=== PATIENT | female | born 1955 | race Caucasian/White ===

== ENCOUNTER 2018-06-20 10:08 | Inpatient (IN) | payer SELFPAY ==
[2018-06-20] MEDS ORDERED: FENTANYL CITR 100 MCG/2 ML ONE (10:29)
[2018-06-20] MEDS ORDERED: NA CHLORIDE 0.9% 1,000 ML ONE (10:29)
[2018-06-20 10:40] LABS: Absolute Lymphocytes (CBC) 1.7 K/uL (0.7-4.9); Absolute Monocytes 0.4 K/uL (0.1-1.3); Absolute Neutrophil 7.7 K/uL (1.8-8.0); Basophils % 0.4 % (0-1.3); Eosinophils % 0.9 % (0-4.4); Hematocrit 42.7 % (36.0-45.0); Lymphocytes % 17.2 % (15.3-44.8); MPV 10.3 fL (7.6-11.3); Monocytes % 4.1 % (3.3-12.3); Protime INR 0.99; RBC Red Blood Cell Count 4.46 M/uL (3.86-4.86)
[2018-06-20] MEDS ORDERED: DIAZEPAM 10 MG/2 ML INJ SYRINGE ONE (10:45)
--- NOTE | 2018-06-20 10:47 | RAD REPORT ---
EXAM DESCRIPTION: CT - Angio Aorta For Dissection - 06/20/2018 10:33 am CLINICAL HISTORY: Chest pain COMPARISON: None. TECHNIQUE: Dynamically enhanced 3 mm thick images of the chest, abdomen, and upper pelvis were [place] during administration of approximately 150mL Isovue 370 IV contrast. Sagittal and coronal reconst ruction images were generated using MIP and reviewed. Exam utilizes a protocol to evaluate entire cou rse of the aorta. All CT scans are performed using dose optimization technique as appropriate and may include automated exposure control or mA/KV adjustment according to patient size. FINDINGS: Aorta is normal in diameter with no dissection or other acute aortic findings. Reconstruct ion images show no significant findings. Pulmonary arteries are normal as well. No cardiomegaly, pericardial thickening or pericardial effusio n. No consolidation or mass. Posterior gutter granuloma on the right. Underlying motion could mask a mil d interstitial edema or infiltrate. No pericardial thickening or effusion. Heart size is upper normal . No pleural thickening, pleural effusion or pneumothorax. No abnormal mediastinal or hilar mass or lymphadenopathy seen. No chest wall mass or abnormal axillar y lymphadenopathy. Celiac, SMA and renal arteries show no suspicious findings. The liver, spleen and pancreas show no tran spicious findings. Gallstone is suspected in the fundus. Biliary tree is mildly prominent for a post cholecystectomy patient. There is questionable duct stone present. No mass or abnormal lymphadenopat hy. No free air or pneumatosis. Free fluid is present in the pelvis urinary bladder is fully contract ed. Fluid is beyond physiologic limits. The etiology of the fluid is not clearly evident. No gross ac eyak bowel finding seen. Postsurgical changes to the stomach and small bowel are stable. No uterine abnormality. Ovaries are atrophic or absent. No adnexal mass identified. Disc and bony degenerative changes are present. No acute bone finding. IMPRESSION: Negative CT scan of the aorta and pulmonary arterial tree. No acute CT chest finding. Cholelithiasis and suspected choledocholithiasis with enlarged biliary tree. Correlation is needed wi th any cholecystitis or biliary obstructive clinical findings. Free fluid in the pelvis is greater than physiologic quantity. Etiology is not certain unless it is r elated to gallbladder and biliary process. No free air or surgically emergent finding. No other significant findings on chest, abdomen and upper pelvis examination.
[2018-06-20 10:53] LABS: ALT/SGPT 19 U/L (12-78); AST/SGOT 16 U/L (15-37); Albumin 3.6 g/dL (3.4-5.0); Alkaline Phosphatase 68 U/L (45-117); BUN Blood Urea Nitrogen 27 mg/dL (7-18); Bicarbonate 26 mmol/L (21-32); Bilirubin Direct 0.2 mg/dL (0-0.2); Bilirubin Total 0.8 mg/dL (0.2-1.0); Glucose Level 136 mg/dL (74-106); NT PRO-BNP 117 pg/mL (<125); Potassium 3.5 mmol/L (3.5-5.1); Protein, Total 6.7 g/dL (6.4-8.2); Sodium Level 138 mmol/L (136-145); Troponin (Emerg Dept Use Only) < 0.02 ng/mL (0.0-0.045)
[2018-06-20] MEDS ORDERED: PIPER/TAZO/NS 3.375gm 3.375 GM/100 ML BAG ONE (11:16)
--- NOTE | 2018-06-20 11:36 | RAD REPORT ---
EXAM DESCRIPTION: RAD - Chest Single View - 06/20/2018 11:29 am CLINICAL HISTORY: CHEST PAIN Chest pain. COMPARISON: No comparisons FINDINGS: Portable technique limits examination quality. The lungs are underinflated with bilateral pulmonary opacities noted, greater on the left. This proba trista represents pulmonary edema. The heart is mildly enlarged in size. No displaced fractures. IMPRESSION: Mild asymmetric pulmonary edema suspected.
--- NOTE | 2018-06-20 12:08 | EDPHYS ---
Physician Documentation [facility] Name: Antonia Sunshine Age: 62 yrs Sex: Female : 1955 Arrival Date: 06/20/2018 Time: 10:11 Bed 19 Private MD: ED Physician Terence Paz HPI: 06/20 11:07 This 62 yrs old Female presents to ER via EMS with complaints of Abdominal snw Pain. 11:07 The patient presents with abdominal pain in the upper abdomen. Onset: The snw symptoms/episode began/occurred suddenly, at 08:00, and became worse and became persistent. The symptoms radiate to The symptoms are described as sharp, shooting, stabbing. Severity of pain: At its worst the pain was incapacitating in the emergency department the pain is unchanged. The patient has not experienced similar symptoms in the past. The patient has not recently seen a physician. Historical: - Allergies: 10:14 Red Dye; hb - Home Meds: 10:14 aspirin 325 mg Oral TbEC once daily [Active]; [place] Oral [Active]; Tramadol Oral hb [Active]; - PSHx: 10:14 Gastric Bypass; Tonsillectomy; hb - Immunization history:: Adult Immunizations up to date. - Social history:: Smoking status: Patient/guardian denies using tobacco. - Ebola Screening: : No symptoms or risks identified at this time. ROS: 11:06 Constitutional: Negative for fever, chills, and weight loss, Eyes: Negative for injury, snw pain, redness, and discharge, ENT: Negative for injury, pain, and discharge, Neck: Negative for injury, pain, and swelling, Cardiovascular: Negative for chest pain, palpitations, and edema, Respiratory: Negative for shortness of breath, cough, wheezing, and pleuritic chest pain, : Negative for injury, bleeding, discharge, and swelling, MS/Extremity: Negative for injury and deformity, Skin: Negative for injury, rash, and discoloration, Neuro: Negative for headache, weakness, numbness, tingling, and seizure. 11:06 Abdomen/GI: Positive for abdominal pain, nausea, abdominal cramps, abdominal distension, of the epigastric area, umbilical area, right upper quadrant and left upper quadrant. 11:06 Back: Positive for radiated pain. Exam: 11:04 Head/Face: Normocephalic, atraumatic. Eyes: Pupils equal round and reactive to light, snw extra-ocular motions intact. Lids and lashes normal. Conjunctiva and sclera are non-icteric and not injected. Cornea within normal limits. Periorbital areas with no swelling, redness, or edema. ENT: Nares patent. No nasal discharge, no septal abnormalities noted. Tympanic membranes are normal and external auditory canals are clear. Oropharynx with no redness, swelling, or masses, exudates, or evidence of obstruction, uvula midline. Mucous membranes moist. Neck: Trachea midline, no thyromegaly or masses palpated, and no cervical lymphadenopathy. Supple, full range of motion without nuchal rigidity, or vertebral point tenderness. No Meningismus. Chest/axilla: Normal chest wall appearance and motion. Nontender with no deformity. No lesions are appreciated. Cardiovascular: Regular rate and rhythm with a normal S1 and S2. No gallops, murmurs, or rubs. Normal PMI, no JVD. No pulse deficits. Respiratory: Lungs have equal breath sounds bilaterally, clear to auscultation and percussion. No rales, rhonchi or wheezes noted. No increased work of breathing, no retractions or nasal flaring. 11:04 Back: No spinal tenderness. No costovertebral tenderness. Full range of motion. MS/ Extremity: Pulses equal, no cyanosis. Neurovascular intact. Full, normal range of motion. Neuro: Awake and alert, GCS 15, oriented to person, place, time, and situation. Cranial nerves II-XII grossly intact. Motor strength 5/5 in all extremities. Sensory grossly intact. Cerebellar exam normal. Normal gait. 11:04 Constitutional: The patient appears anxious, diaphoretic, obese, in obvious distress, restless, uncomfortable. 11:04 Abdomen/GI: Inspection: obese fungal rash distal left breast, Bowel sounds: normal, Palpation: severe abdominal tenderness, in the epigastric area, umbilical area and right upper quadrant. 11:04 Skin: Appearance: Color: pale, ringworm, on the left breast. Vital Signs: 10:15 BP 135 / 64; Pulse 61; Resp 24; Temp 98.1; Pulse Ox 98% on R/A; Weight 113.4 kg; Height hb 5 ft. 7 in. (170.18 cm); Pain 10/10; 10:40 BP 168 / 86; Pulse 73; Resp 26; Pulse Ox 99% on R/A; Pain 10/10; em 11:00 BP 107 / 74; Pulse 74; Resp 22; Pulse Ox 97% on 3 lpm NC; em 11:25 BP 119 / 66; Pulse 69; Resp 21; Pulse Ox 96% on R/A; em 12:30 BP 124 / 73; Pulse 71; Resp 18; Pulse Ox 96% on R/A; em 13:10 BP 118 / 72; Pulse 73; Resp 19; Pulse Ox 99% on R/A; Pain 6/10; em 10:15 Body Mass Index 39.16 (113.40 kg, 170.18 cm) hb MDM: 10:20 Patient medically screened. snw 11:03 Data reviewed: vital signs, nurses notes, lab test result(s), EKG, radiologic studies. snw Counseling: I had a detailed discussion with the patient and/or guardian regarding: the historical points, exam findings, and any diagnostic results supporting the discharge/admit diagnosis, radiology results, the need for further work-up and treatment in the hospital. Physician consultation: Anton Bartholomew MD was called at 11:03, was contacted at 11:03, regarding consult, patient's condition, would like further tests performed, mrcp. 06/20 10:18 Order name: Basic Metabolic Panel formerly [facility] 06/20 10:18 Order name: CBC with Diff; Complete Time: 10:49 snw 06/20 10:18 Order name: LFT's sn 06/20 10:18 Order name: Magnesium snw 06/20 10:18 Order name: NT PRO-BNP sn 06/20 10:18 Order name: PT-INR; Complete Time: 10:49 snw 06/20 10:18 Order name: Troponin (emerg Dept Use Only) sn 06/20 10:18 Order name: XRAY Chest (1 view); Complete Time: 11:46 snw 06/20 10:19 Order name: Basic Metabolic Panel EDMS 06/20 10:33 Order name: Angio Aorta For Dissection; Complete Time: 10:49 EDMS 06/20 11:10 Order name: Cholangiogram; Complete Time: 12:38 EDMS 06/20 10:18 Order name: EKG; Complete Time: 10:06/20 10:18 Order name: Cardiac monitoring; Complete Time: 06/20 10:19 Order name: EKG - Nurse/Tech; Complete Time: 06/20 10:19 Order name: IV Saline Lock; Complete Time: :06/20 10:19 Order name: Labs collected and sent; Complete Time: 06/20 10:19 Order name: O2 Per Protocol; Complete Time: 06/20 10:19 Order name: O2 Sat Monitoring; Complete Time: :06/20 11:21 Order name: CONS Physician Consult EDWA Administered Medications: 10:33 Drug: NS 0.9% 1000 ml Route: IV; Rate: 125 ml/hr; Site: left antecubital; em 10:36 Drug: fentaNYL (PF) 50 mcg Route: IVP; Site: left antecubital; hb 12:33 Follow up: Response: No adverse reaction em 10:50 Drug: Valium 2 mg Route: IVP; Site: left antecubital; hb 12:34 Follow up: Response: No adverse reaction em 11:10 Drug: fentaNYL (PF) 50 mcg Route: IVP; Site: left antecubital; hb 11:18 Drug: Zosyn 3.375 grams Route: IVPB; Infused Over: 60 mins; Site: left antecubital; hb 12:40 Drug: morphine 4 mg Route: IVP; Site: left antecubital; iw Disposition: 06/20/18 12:07 Hospitalization ordered by Victorina Ferreira for Inpatient Admission. Preliminary diagnosis are CHOLEDOCOLITHIASIS, Upper abdominal pain, unspecified. - Bed requested for Telemetry/MedSurg (Inpatient). - Status is Inpatient Admission. iw - Condition is Stable. - Problem is an acute exacerbation. - Symptoms are unchanged. UTI on Admission? No Addendum: 06/21/2018 19:25 Co-signature as Attending Physician, Terence Paz MD I agree with the assessment and k dr plan of care. Signatures: Dispatcher [employer] [facility] Mattie Serrano RN RN dw Rittger, Kevin, MD MD [facility] Mimi Gracia, BENEFITS PROCESSOR-C BENEFITS PROCESSOR-Csnw Jose A Camara, ACCOUNTING MANAGER ACCOUNTING MANAGER em Chaya Montejo, YONIS RN iw Belem Muir, YONIS RN Corrections: (The following items were deleted from the chart) 06/20 10:33 10:21 Dissection W/ Wo Con+CT.RAD.BRZ ordered. EDMS EDMS 12:25 12:07 Hospitalization Ordered by Victorina eFrreira MD for Inpatient Admission. Preliminary dw diagnosis is CHOLEDOCOLITHIASIS; Upper abdominal pain, unspecified. Bed requested for Telemetry/MedSurg (Inpatient). Status is Inpatient Admission. Condition is Stable. Problem is an acute exacerbation. Symptoms are unchanged. UTI on Admission? No. snw 13:37 12:25 06/20/2018 12:07 Hospitalization Ordered by Victorina Ferreira MD for Inpatient iw Admission. Preliminary diagnosis is CHOLEDOCOLITHIASIS; Upper abdominal pain, unspecified. Bed requested for Telemetry/MedSurg (Inpatient). Status is Inpatient Admission. Condition is Stable. Problem is an acute exacerbation. Symptoms are unchanged. UTI on Admission? No. dw
--- NOTE | 2018-06-20 12:08 | ER ---
Nurse's Notes [facility] Name: Antonia Sunshine Age: 62 yrs Sex: Female : 1955 Arrival Date: 06/20/2018 Time: 10:11 Bed 19 Private MD: Diagnosis: CHOLEDOCOLITHIASIS;Upper abdominal pain, unspecified Presentation: 06/20 10:12 Presenting complaint: EMS states: Sudden onset upper abdominal pain that radiates to hb upper back and left shoulder, pt is pale, cool, and diaphoretic. NSR on 12 lead, 20g to LEFT AC. Transition of care: patient was not received from another setting of care. Onset of symptoms. Risk Assessment: Do you want to hurt yourself or someone else? Patient reports no desire to harm self or others. Care prior to arrival: IV initiated. 20 GA, in the left antecubital area. 10:12 Method Of Arrival: EMS: [facility] hb 10:12 Acuity: SAGE 2 hb Historical: - Allergies: 10:14 Red Dye; hb - Home Meds: 10:14 aspirin 325 mg Oral TbEC once daily [Active]; [place] Oral [Active]; Tramadol Oral hb [Active]; - PSHx: 10:14 Gastric Bypass; Tonsillectomy; hb - Immunization history:: Adult Immunizations up to date. - Social history:: Smoking status: Patient/guardian denies using tobacco. - Ebola Screening: : No symptoms or risks identified at this time. Screenin:15 Abuse screen: Denies threats or abuse. Denies injuries from another. Nutritional hb screening: No deficits noted. Tuberculosis screening: No symptoms or risk factors identified. Fall Risk Total [place] Fall Scale indicates Low Risk Score (25-44 pts). Fall prevention measures have been instituted. Side Rails Up X 2 Frequent Obs/Assesments occuring As available Patient and Family Educated on Fall Prevention Program and strategies. Assessment: 10:17 General: Appears distressed, Behavior is cooperative, agitated. Pain: Pain currently is hb 10 out of 10 on a pain scale. Neuro: Level of Consciousness is awake, alert, obeys commands, Oriented to person, place, time, situation. Cardiovascular: Heart tones S1 S2 present Capillary refill < 3 seconds Patient's skin is warm and dry. Respiratory: Airway is patent Respiratory effort is even, unlabored, Respiratory pattern is symmetrical, tachypnea Breath sounds are clear bilaterally. GI: Abdomen is obese, Bowel sounds present X 4 quads. Abd is soft X 4 quads Abdomen is tender to palpation upper quadrant. : No signs and/or symptoms were reported regarding the genitourinary system. EENT: No signs and/or symptoms were reported regarding the EENT system. Derm: Skin is healthy with good turgor, Skin is diaphoretic, Skin is pale, Skin temperature is cool. Musculoskeletal: No signs and/or symptoms reported regarding the musculoskeletal system. 10:18 Reassessment: Pt to CT via stretcher. hb 10:35 Reassessment: Patient appears in no apparent distress at this time. Patient and/or em family updated on plan of care and expected duration. Pain level reassessed. pain is unchanged provider notified, new medication orders received. 11:40 Reassessment: wheeled to MRI via wheelchair, tolerated well, reports pain, provider em notified, no new orders received. 12:32 Reassessment: reports pain is "30/10", pt appears to be uncomfortable and grimacing, em provider notified, new medication orders received. 13:10 Reassessment: Patient appears in no apparent distress at this time. Patient and/or em family updated on plan of care and expected duration. Pain level reassessed. Patient is alert, oriented x 3, equal unlabored respirations, skin warm/dry/pink. rates pain 6/10, pt appears comfortable Patient states feeling better. Vital Signs: 10:15 BP 135 / 64; Pulse 61; Resp 24; Temp 98.1; Pulse Ox 98% on R/A; Weight 113.4 kg; Height hb 5 ft. 7 in. (170.18 cm); Pain 10/10; 10:40 BP 168 / 86; Pulse 73; Resp 26; Pulse Ox 99% on R/A; Pain 10/10; em 11:00 BP 107 / 74; Pulse 74; Resp 22; Pulse Ox 97% on 3 lpm NC; em 11:25 BP 119 / 66; Pulse 69; Resp 21; Pulse Ox 96% on R/A; em 12:30 BP 124 / 73; Pulse 71; Resp 18; Pulse Ox 96% on R/A; em 13:10 BP 118 / 72; Pulse 73; Resp 19; Pulse Ox 99% on R/A; Pain 6/10; em 10:15 Body Mass Index 39.16 (113.40 kg, 170.18 cm) hb ED Course: 10:11 Patient arrived in ED. hb 10:13 Triage completed. hb 10:13 Arm band placed on. hb 10:14 Patient has correct armband on for positive identification. Bed in low position. Call hb light in reach. Side rails up X2. 10:16 EKG done, by ED staff, reviewed by Terence Paz MD. Maintain EMS IV. Dressing intact. ms Good blood return noted. Site clean \\T\\ dry. Gauge \\T\\ site: 20G left ac. IV with good blood return. 10:17 Mimi Gracia FNP-C [facility]. snw 10:17 Terence Paz MD is Attending Physician. snw 10:24 Belem Muir, YONIS is Primary Nurse. hb 10:33 Angio Aorta For Dissection In Process Unspecified. EDMS 11:27 X-ray completed. Portable x-ray completed in exam room. Patient tolerated procedure mh1 well. 11:31 XRAY Chest (1 view) In Process Unspecified. EDMS 11:40 Patient moved to MRI via wheelchair. em2 12:06 Victorina Ferreira MD is Hospitalizing Provider. snw 12:18 MRI completed. Patient tolerated well. Patient moved back from [facility]. em2 13:35 No provider procedures requiring assistance completed. Patient admitted, IV remains in em place. Administered Medications: 10:33 Drug: NS 0.9% 1000 ml Route: IV; Rate: 125 ml/hr; Site: left antecubital; em 10:36 Drug: fentaNYL (PF) 50 mcg Route: IVP; Site: left antecubital; hb 12:33 Follow up: Response: No adverse reaction em 10:50 Drug: Valium 2 mg Route: IVP; Site: left antecubital; hb 12:34 Follow up: Response: No adverse reaction em 11:10 Drug: fentaNYL (PF) 50 mcg Route: IVP; Site: left antecubital; hb 11:18 Drug: Zosyn 3.375 grams Route: IVPB; Infused Over: 60 mins; Site: left antecubital; hb 12:40 Drug: morphine 4 mg Route: IVP; Site: left antecubital; iw Outcome: 12:07 Decision to Hospitalize by Provider. snw 13:35 Admitted to Med/surg accompanied by tech, via wheelchair, room 404, with chart, Report em called to YONIS Crowder 13:35 Condition: good 13:35 Instructed on the need for admit, Demonstrated understanding of instructions. 13:37 Patient left the ED. iw Signatures: Dispatcher [employer] EDMS Mimi Gracia, LINEN SUPPLY LOAD BUILDER-C LINEN SUPPLY LOAD BUILDER-Csnw Erica Lim 1 Jose A Camara, RESEARCH STATISTICIAN RESEARCH STATISTICIAN em Chaya Montejo, YONIS RN iw Vivien Aviles ms Swain, Ji em2 Belem Muir, RN RN Corrections: (The following items were deleted from the chart) 12:12 10:35 Reassessment: Patient appears in no apparent distress at this time. Patient em and/or family updated on plan of care and expected duration. Pain level reassessed. Patient is alert, oriented x 3, equal unlabored respirations, skin warm/dry/pink. pain is unchanged provider notified, new medication orders received em
--- NOTE | 2018-06-20 12:32 | RAD REPORT ---
EXAM DESCRIPTION: MRI - Cholangiogram - 06/20/2018 12:13 pm CLINICAL HISTORY: abd pain COMPARISON: Angio Aorta For Dissection dated 06/20/2018 FINDINGS: Three-dimensional MRCP was performed using maximum intensity projection reconstruction on the same work station. Intrahepatic and extrahepatic biliary tree dilatation is present. The common bile duct is dilated to 14 mm. A small filling defect is suspected in the distal common bile duct suspicious for a small ston e. The pancreatic duct appears normal in caliber. The gallbladder appears mildly distended. Mild ascites is seen in the upper abdomen. Several parapelvic left renal cysts present. IMPRESSION: Intrahepatic and common bile duct dilatation is present with small filling defect in the distal common bile duct seen suspicious for stone. Consider ERCP followup assessment.
[2018-06-20] MEDS ORDERED: MORPHINE 4 MG/ML SYR ONE (12:42)
[2018-06-20] MEDS ORDERED: NA CHLORIDE 0.9% 1,000 ML IV SCH (13:49)
[2018-06-20] MEDS ORDERED: ONDANSETRON 4 MG/2 ML VIAL IV PRN (13:49)
[2018-06-20 14:38] LABS: Amylase Level 111 U/L (25-115); Lipase 713 U/L (73-393)
[2018-06-20] MEDS ORDERED: MORPHINE 2 MG/ML SYR IV PRN (14:38)
--- NOTE | 2018-06-20 14:43 | EKG ---
Test Date: 2018-06-20 Test Time: 10:13:10 Boom Boss: PA MEASUREMENT RESULTS: Intervals: Rate: 60 OR: 166 QRSD: 90 QT: 438 QTc: 438 [place]: P: 50 OR: 166 QRS: 2 T: 37 INTERPRETIVE STATEMENTS: Normal sinus rhythm Normal ECG No previous ECG available for comparison Electronically Signed On 06-20-18 14:40:55 CDT by Zane Day
--- NOTE | 2018-06-20 16:22 | P.HP ---
Patient History Date of Service: 06/20/18 Reason for admission: Acute abdominal pain Allergies red dye Allergy (Verified 06/20/18 12:35) Rash Home Medications: Hydrocodone 7.5/APAP 325 [[place] 7.5/325 mg] 1 tab PO Q6H PRN 06/20/18 Meloxicam [Mobic] 15 mg PO DAILY 06/20/18 traMADol HCL [Ultram] 100 mg PO TID PRN 06/20/18 - Past Medical/Surgical History Has patient received pneumonia vaccine in the past: No Diabetic: No -: Gastric Bypass -: Tonsillectomy - Social History Smoking Status: Never smoker Alcohol use: Yes CD- Drugs: Yes Caffeine use: Yes Place of Residence: Home Review of Systems 10-point ROS is otherwise unremarkable Physical Examination - Vital Signs Temperature: 96.7 F Blood Pressure: 147/71 Pulse: 70 Respirations: 19 Pulse Ox (%): 97 - Studies Laboratory Data (last 24 hrs) 06/20/18 10:24: PT 11.7, INR 0.99 06/20/18 10:24: WBC 10.0, Hgb 14.6, Hct 42.7, Plt Count 228 06/20/18 10:24: Sodium 138, Potassium 3.5, BUN 27 H, Creatinine 1.01, Glucose 136 H, Magnesium 2.0, Total Bilirubin 0.8, AST 16, ALT 19, Alkaline Phosphatase 68, Amylase 111, Lipase 713 H Assessment and Plan - Problems (Diagnosis) (1) Choledocholithiasis with acute cholecystitis Current Visit: Yes Status: Acute (2) Common bile duct dilatation Current Visit: Yes Status: Acute (3) Abdominal pain Current Visit: Yes Status: Acute - Advance Directives Does patient have a Living Will: No Does patient have a Durable POA for Healthcare: No
--- NOTE | 2018-06-20 17:02 | P.SSS ---
Patient History Date of Service: 06/20/18 Reason for admission: Acute abdominal pain History of Present Illness: This is a 62-year-old female with history of gastric bypass admitted for acute abdominal pain that started this morning at 8:00 a.m. patient describes this as a sharp, shooting, stabbing pain in her upper abdomen, left side abdomen radiating to upper back, collarbone and left shoulder. This pain is causing her to have some shortness of breath but denies any chest pain, vision changes, lightheadedness, or complaints. In the ER, her initial blood pressure was 135/64, heart rate of 61, respirations of 24, afebrile at 98.1 and breathing 90% on room air with a BMI of 39.16. Her lab work was unremarkable. A CT dissection was done, positive for cholelithiasis and suspected coli toe cholelithiasis with enlarged biliary tree. An MRCP was ordered, pending. If in the ER, patient received Valium, fentanyl, Zosyn, IV fluids and morphine. At the time of my exam, she was hemodynamically stable, though in moderate to severe pain. Allergies red dye Allergy (Verified 06/20/18 12:35) Rash Home Medications: Hydrocodone 7.5/APAP 325 [[place] 7.5/325 mg] 1 tab PO Q6H PRN 06/20/18 Meloxicam [Mobic] 15 mg PO DAILY 06/20/18 traMADol HCL [Ultram] 100 mg PO TID PRN 06/20/18 - Past Medical/Surgical History Has patient received pneumonia vaccine in the past: No Diabetic: No -: Gastric Bypass -: Tonsillectomy - Social History Smoking Status: Never smoker Alcohol use: Yes CD- Drugs: Yes Caffeine use: Yes Place of Residence: Home Review of Systems 10-point ROS is otherwise unremarkable Physical Examination - Vital Signs Temperature: 96.7 F Blood Pressure: 147/71 Pulse: 70 Respirations: 19 Pulse Ox (%): 97 - Physical Exam General: Alert, Oriented x3, Cooperative, Moderate distress, Severe distress HEENT: Atraumatic, PERRLA, Mucous membr. moist/pink, EOMI, Sclerae nonicteric Neck: Supple, 2+ carotid pulse no bruit, No LAD, Without JVD or thyroid abnormality Respiratory: Clear to auscultation bilaterally, Normal air movement Cardiovascular: Regular rate/rhythm, Normal S1 S2 Gastrointestinal: Tenderness (Left upper and lower quadrant, right upper quadrant.) Musculoskeletal: No tenderness Integumentary: No rashes Neurological: Normal gait, Normal speech, Normal strength at 5/5 x4 extr, Normal tone, Normal affect - Studies Laboratory Data (last 24 hrs) 06/20/18 10:24: PT 11.7, INR 0.99 06/20/18 10:24: WBC 10.0, Hgb 14.6, Hct 42.7, Plt Count 228 06/20/18 10:24: Sodium 138, Potassium 3.5, BUN 27 H, Creatinine 1.01, Glucose 136 H, Magnesium 2.0, Total Bilirubin 0.8, AST 16, ALT 19, Alkaline Phosphatase 68, Amylase 111, Lipase 713 H - Diagnosis (Problem(s)) (1) Choledocholithiasis with acute cholecystitis Current Visit: Yes Status: Acute (2) Common bile duct dilatation Current Visit: Yes Status: Acute (3) Abdominal pain Current Visit: Yes Status: Acute Treatment Summary: Patient was admitted to the floor for further evaluation and MRCP. MRCP was reviewed, positive for intrahepatic and common bile duct dilatation, recommending ERCP. Foot unfortunately, ERCP unable to be done here as patient has a history of gastric bypass and scope would not be able to pass. Patient unsure where she had gastric bypass surgery done, states it was done years and years ago. It was done at a private clinic in [place] though. She will need a specialized procedure, EUS or small bowel scope for further management. For this, she will have to be transferred to [place] as we do not provide the services here. Discussed this with the patient, patient agrees to be transferred to [facility] [place]. Transfer initiated and we will transfer patient once accepted. - Disposition Discharge Date: 06/20/18 Disposition: TRANSFER TO [facility] Condition: GOOD Consultations: Gastroenterology, Dr. Bartholomew
[2018-06-20] MEDS ORDERED: HYDROMORPHONE HCL 2 MG/ML inj IV ONE (17:17)
[2018-06-20] MEDS ORDERED: Ringers Lactate 1,000 ML IV ONE (17:25)
[2018-06-20] MEDS: Ringers Lactate 1,000 ML IV SCH (18:47)
[2018-06-20] MEDS: HYDROMORPHONE HCL 2 MG/ML inj IV PRN (21:19)
[2018-06-21] MEDS: Ringers Lactate 1,000 ML IV SCH ×2 (01:04→05:49)
[2018-06-21 01:48] LABS: Urine Appearance CLEAR; Urine Bilirubin NEGATIVE (NEG); Urine Blood NEGATIVE (NEG); Urine Color YELLOW; Urine Glucose NEGATIVE (NEG); Urine Microscopic Reflex NO UMIC; Urine Protein NEGATIVE (NEG); Urine Specific Gravity >=1.030 (1.005-1.030)
[2018-06-21] MEDS: HYDROMORPHONE HCL 2 MG/ML inj IV PRN ×2 (04:05→08:07)
[2018-06-21 06:04] LABS: Absolute Lymphocytes (CBC) 1.6 K/uL (0.7-4.9); Absolute Monocytes 0.7 K/uL (0.1-1.3); Basophils % 0.2 % (0-1.3); Hematocrit 44.8 % (36.0-45.0); Lymphocytes % 17.7 % (15.3-44.8); MPV 10.5 fL (7.6-11.3); Monocytes % 7.2 % (3.3-12.3); RBC Red Blood Cell Count 4.71 M/uL (3.86-4.86)
[2018-06-21 06:10] LABS: Albumin 3.1 g/dL (3.4-5.0); Bilirubin Total 1.3 mg/dL (0.2-1.0); Phosphorus 3.2 mg/dL (2.5-4.9); Protein, Total 6.3 g/dL (6.4-8.2)
--- NOTE | 2018-06-21 11:20 | P.PN ---
Subjective Date of Service: 06/21/18 Chief Complaint: Acute abdominal pain Subjective: No new changes Patient seen and examined at bedside. Chart reviewed Patient admitted for acute cholecystitis w/ choledocolithiasis. Unable to do ERCP here due to hx of gastric bypass. Remains hemodynamically stable, pain not well controlled with medications at this time. Review of Systems 10-point ROS is otherwise unremarkable Physical Examination - Vital Signs Temperature: 97.0 F Blood Pressure: 187/91 Pulse: 92 Respirations: 20 Pulse Ox (%): 96 - Physical Exam General: Alert, Moderate distress, Severe distress HEENT: Atraumatic, PERRLA, EOMI Neck: Supple, JVD not distended Cardiovascular: Regular rate/rhythm, Normal S1 S2 Gastrointestinal: Tenderness (severe even to light touch) - Studies Laboratory Data (last 24 hrs) 06/20/18 10:24: Sodium 138, Potassium 3.5, BUN 27 H, Creatinine 1.01, Glucose 136 H, Magnesium 2.0, Total Bilirubin 0.8, AST 16, ALT 19, Alkaline Phosphatase 68, Amylase 111, Lipase 713 H Assessment And Plan - Current Problems (Diagnosis) (1) Choledocholithiasis with acute cholecystitis Current Visit: Yes Status: Acute (2) Common bile duct dilatation Current Visit: Yes Status: Acute (3) Abdominal pain Current Visit: Yes Status: Acute (4) Acute pancreatitis due to calculus of common bile duct Current Visit: Yes Status: Acute - Plan Patient was admitted to the floor for further evaluation and MRCP. MRCP was reviewed, positive for intrahepatic and common bile duct dilatation, recommending ERCP. Foot unfortunately, ERCP unable to be done here as patient has a history of gastric bypass and scope would not be able to pass. Patient unsure where she had gastric bypass surgery done, states it was done years and years ago. It was done at a private clinic in [place] though. She will need a specialized procedure, EUS or small bowel scope for further management. For this, she will have to be transferred to [place] as we do not provide the services here. Discussed this with the patient, [facility] Discussed case with GI Doctor at [facility] (Dr. Donald) as well as hospitalist (Dr. Davis). Patient was transferred to [facility] once she was accepted.
--- NOTE | 2018-06-21 12:45 | P.CNS ---
Date of Consult: 06/20/18 Chief Complaint: Acute abdominal pain History of Present Illness: 62 y/o with abdominal pain epigastric with nausea. Found to have gallstones and choledocholithiasis. Pt has h/o gastric bypass. Allergies red dye Allergy (Verified 06/20/18 12:35) Rash Home Medications: Hydrocodone 7.5/APAP 325 [[place] 7.5/325 mg] 1 tab PO Q6H PRN 06/20/18 Meloxicam [Mobic] 15 mg PO DAILY 06/20/18 traMADol HCL [Ultram] 100 mg PO TID PRN 06/20/18 - Past Medical/Surgical History Diabetic: No -: Gastric Bypass -: Tonsillectomy - Social History Alcohol use: Yes CD- Drugs: Yes Caffeine use: Yes Place of Residence: Home Physical Examination Temp Pulse Resp BP Pulse Ox 97.0 F 92 H 20 187/91 H 96 06/21/18 11:20 06/21/18 11:20 06/21/18 11:20 06/21/18 11:20 06/21/18 11:20 General: Alert, In no apparent distress, Oriented x3 HEENT: PERRLA, EOMI, Sclerae nonicteric Neck: Supple Gastrointestinal: Soft and benign, No rebound, No guarding, Tenderness (mild epigastric tenderness) Musculoskeletal: No erythema, No tenderness, No warmth Integumentary: No warmth, No cyanosis Neurological: Normal speech Laboratory Data (last 24 hrs) 06/20/18 10:24: Sodium 138, Potassium 3.5, BUN 27 H, Creatinine 1.01, Glucose 136 H, Magnesium 2.0, Total Bilirubin 0.8, AST 16, ALT 19, Alkaline Phosphatase 68, Amylase 111, Lipase 713 H Conclusions/Impression: Pt has a stone in CBD and no access for ERCP. May need to be transferred to higher level of care for choledocholithiasis treatment. Pt fully explained diagnosis, anatomy limitations and BAR of different options to remove CBD stone.
--- NOTE | 2018-06-21 13:02 | P.PN ---
Subjective Date of Service: 06/21/18 Chief Complaint: Acute abdominal pain Subjective: Tolerating diet Review of Systems 10-point ROS is otherwise unremarkable Physical Examination - Vital Signs Temperature: 97.0 F Blood Pressure: 187/91 Pulse: 92 Respirations: 20 Pulse Ox (%): 96 - Physical Exam General: Alert, Oriented x3, Cooperative HEENT: PERRLA, EOMI, Sclerae nonicteric Neck: Supple Gastrointestinal: Soft and benign, Tenderness (mild epigastric) Musculoskeletal: No erythema, No tenderness, No warmth Integumentary: No erythema, No warmth, No cyanosis - Studies Laboratory Data (last 24 hrs) 06/20/18 10:24: Sodium 138, Potassium 3.5, BUN 27 H, Creatinine 1.01, Glucose 136 H, Magnesium 2.0, Total Bilirubin 0.8, AST 16, ALT 19, Alkaline Phosphatase 68, Amylase 111, Lipase 713 H Assessment And Plan - Plan choledocholithisis, pancreatitis, Maykel-en-y gastric bypass Pt explained again the BAR of transfer
== END 2018-06-21 12:37 | disposition short-term general hospital (02) | DRG 444 ==
LOC: ER 10:08 → ERHOLD 11:18 → 4TH 13:24
PROVIDERS: ADMIT Family Medicine; ATTEND Family Medicine
DX: K80.42 Calculus of bile duct with acute cholecystitis without obstruction (principal); K85.90 Acute pancreatitis without necrosis or infection, unspecified; K82.8 Other specified diseases of gallbladder; Z98.84 Bariatric surgery status
CPT/HCPCS: 36415; 71045; 71275; 74175; 74181; 80048; 80053; 80076; 81003; 82150; 83690; 83735; 83880; 84100; 84484; 85025; 85610; 93005; 94760; 96365; 96367; 96374; 96375; 99285; J1170; J2270; J2543; J3010; J3360; J7030; Q9967

== ENCOUNTER 2023-12-03 10:01 | Emergency (ER) | payer OTHER ==
--- NOTE | 2023-12-03 10:59 | RAD REPORT ---
EXAMINATION: CT ABDOMEN AND PELVIS WITHOUT CONTRAST CLINICAL INDICATION: jaundice TECHNIQUE: CT abdomen and pelvis was performed, without IV contrast, as per department protocol. Axia l, sagittal and coronal reconstructions were obtained. One or more of the following dose reduction techniques were used: Automated exposure control, adjustment of the mA and kV according to the patien t size, and iterative reconstruction. Unless otherwise specified, incidental findings do not require dedicated imaging follow-up. COMPARISON: No prior exam. FINDINGS: The lack of intravenous contrast limits the sensitivity of this exam for evaluation of solid visceral organs, vascular structures, and retroperitoneum. LOWER CHEST: The visualized lung bases are clear. Postsurgical changes of gastric bypass. LIVER:Normal in size and contour. No focal lesion. Cholelithiasis. SPLEEN: Normal size. No focal lesion. PANCREAS: No mass, ductal dilation, or lindsey-pancreatic fluid. ADRENALS: Normal; no mass. KIDNEYS AND URETERS: Normal size and contour. No hydronephrosis. Several parapelvic left renal cyst. URINARY BLADDER: Normal contour. GASTROINTESTINAL TRACT: No evidence of bowel obstruction, significant free fluid, free air or abscess . APPENDIX: Normal appendix. LYMPH NODES: No lymphadenopathy. MUSCULOSKELETAL: Mild multilevel spinal degenerative changes. ADDITIONAL FINDINGS: None. IMPRESSION: No acute or concerning abnormalities in the abdomen or pelvis, with evaluation limited by lack of IV contrast. Cholelithiasis.
--- NOTE | 2023-12-03 11:09 | RAD REPORT ---
EXAM: Right upper quadrant ultrasound. CLINICAL HISTORY: jaundice COMPARISON: CT dated 1021 FINDINGS: Gallbladder: Several gallstones are suspected. Bile ducts: Common bile duct appears prominent. No intrahepatic biliary dilatation. Common bile duct measures 14 mm. Limited imaging of the liver shows no concerning finding. IMPRESSION: Cholelithiasis. 14 mm common bile duct could indicate choledocholithiasis. MRCP would be recommended for further eval uation.
[2023-12-03 12:10] LABS: Absolute Eosinophils 0.1 K/uL (0-0.5); Absolute Lymphocytes (CBC) 0.7 K/uL (0.7-4.9); Absolute Monocytes 0.1 K/uL (0.1-1.3); Absolute Neutrophil 2.3 K/uL (1.8-8.0); Basophils % 0.9 % (0-1.3); Eosinophils % 2.9 % (0-4.4); Hematocrit 18.4 % (36.0-45.0); Lymphocytes % 21.6 % (15.3-44.8); MCH 42.5 pg (27.0-35.0); MCHC 29.6 g/dL (32.0-36.0); MCV 143.4 fL (80-100); MPV 8.3 fL (7.6-11.3); Monocytes % 3.9 % (3.3-12.3); Neutrophils % 70.7 % (41.7-73.7); Nucleated Red Blood Cells % 0.1 % (0-0); Platelets 210 thou/uL (152-406); RBC Red Blood Cell Count 1.28 M/uL (3.86-4.86); Red Cell Distribution Width 16.7 % (12.1-15.2)
[2023-12-03 12:32] LABS: Specific Gravity 1.014 (1.005-1.030); Sqamous Epithelial <5 /HPF (None Seen); Urine Bacteria <20 /HPF (<20); Urine Bilirubin NEGATIVE (Negative); Urine Blood Negative (Negative); Urine Clarity Turbid (Clear); Urine Color Yellow (Yellow); Urine Culture Reflex Order NOT NEEDED; Urine Glucose NEGATIVE (Negative); Urine Ketones NEGATIVE (Negative); Urine Microscopic Reflex YN ORDER UMIC; Urine Mucus 2+ /HPF (None Seen); Urine Nitrite NEGATIVE (Negative); Urine Protein NEGATIVE (Negative); Urine RBC <5 /HPF (None Seen); Urine Urobilinogen Normal (Normal); Urine WBC <5 /HPF (<5)
[2023-12-03 12:34] LABS: AST/SGOT 26 U/L (15-37); Albumin 3.5 g/dL (3.4-5.0); Albumin/Globulin Ratio 1.3 (1.1-1.8); Alkaline Phosphatase 57 U/L (45-117); Anion Gap 7.6 mEq/L (5.0-15.0); BUN Blood Urea Nitrogen 12 mg/dL (7-18); Bicarbonate 26 mEq/L (21-32); Bilirubin Total 4.9 mg/dL (0.2-1.0); Globulin 2.7 g/dL (2.3-3.5); Glomerular Filtration Rate 86 ml/min (=/>90); Glucose Level 108 mg/dL (74-106); Hemoglobin 5.4 g/dL (12.0-15.0); Lipase 22 U/L (13-75); Potassium 3.6 mEq/L (3.5-5.1); Protein, Total 6.2 g/dL (6.4-8.2); Sodium Level 141 mEq/L (136-145)
[2023-12-03 12:36] LABS: Anisocytosis 1+; Blood Morphology Comment NOTED (NOT SEEN); Macrocytosis 3+; Platelet Estimate ADEQ; Polychromasia 2+; White Blood Cell Scan OK (OK)
[2023-12-03 12:37] LABS: ALT/SGPT < 14 U/L (13-56); Basophilic Stippling 2+
[2023-12-03] MEDS ORDERED: DIAZEPAM 2 MG TABLET ONE (13:14)
--- NOTE | 2023-12-03 14:09 | RAD REPORT ---
EXAMINATION: MR CHOLANGIOGRAM CLINICAL INDICATION: Female, 67 years old. [facility] MAIN N abd pain er TECHNIQUE: Multiplanar, multisequence MR imaging of the abdomen without intravenous contrast, and wit h specific attention to the biliary system. Unless otherwise specified, incidental findings do not require dedicated imaging follow-up. 3D MIP reconstruction performed. COMPARISON: 12/03/2023 FINDINGS: GALLBLADDER: Cholelithiasis is present. No pericholecystic edema. BILE DUCTS: Intrahepatic biliary duct dilatation. The common bile duct measures 13 mm. There is sligh t tapering distally towards the ampulla. No evidence of obstructing stone or mass. LIVER: Benign-appearing small T2 hyperintense lesion in the right hepatic lobe measuring 7 mm. This i s of doubtful significance. PANCREAS: Pancreatic atrophy. LYMPH NODES: No lymphadenopathy. ADDITIONAL FINDINGS: Left renal sinus cyst. IMPRESSION: Cholelithiasis. Intra- and extrahepatic biliary ductal dilatation. No evidence of obstructing stone o r mass. The finding is chronic. If the patient has significantly abnormal LFTs, ERCP could be considered to further evaluate.
--- NOTE | 2023-12-03 14:41 | ER ---
Nurse's Notes [facility] Name: Antonia Sunshine Age: 67 yrs Sex: Female : 1955 Arrival Date: 12/03/2023 Time: 10:01 Bed 24 Private MD: Diagnosis: Unspecified jaundice;Anemia, unspecified;Other cholelithiasis without obstruction Presentation: 12/02 10:25 Chief complaint: Sent by PCP for hemoglobin 5.0, c/o SOB x 1 week. Coronavirus screen: hb At this time, the client does not indicate any symptoms associated with coronavirus-19. Ebola Screen: No symptoms or risks identified at this time. Initial Sepsis Screen: Does the patient meet any 2 criteria? No. Patient's initial sepsis screen is negative. Does the patient have a suspected source of infection? No. Patient's initial sepsis screen is negative. Risk Assessment: Do you want to hurt yourself or someone else? Patient reports no desire to harm self or others. Onset of symptoms was November 26, 2023. 10:25 Method Of Arrival: Ambulatory hb 10:25 Acuity: SAGE 2 hb Triage Assessment: 10:29 General: Appears in no apparent distress. Behavior is calm, cooperative. Pain: Denies hb pain. Neuro: Level of Consciousness is awake, alert, obeys commands, Oriented to person, place, time, situation. Cardiovascular: Patient's skin is warm and dry. Respiratory: Respiratory effort is even, unlabored, Respiratory pattern is regular, symmetrical. Historical: - Allergies: 10:26 Red Dye; hb - Home Meds: 10:26 aspirin 325 mg Oral TbEC once daily [Active]; [place] Oral [Active]; Tramadol Oral hb [Active]; 10:28 Robaxin Oral [Active]; aspirin 81 mg Oral tablet,chewable [Active]; gabapentin 100 mg hb oral capsule 3 times per day [Active]; - PMHx: 10:28 Arthritis; hb - PSHx: 10:28 Knee Replacement - Bilateral; hb - Immunization history:: Adult Immunizations up to date. - Infectious Disease History:: Denies. - Social history:: Smoking status: Patient denies any tobacco usage or history of. - Family history:: not pertinent. - Hospitalizations: : No recent hospitalization is reported. Screenin:15 [facility] ED Fall Risk Assessment (Adult) History of falling in the last 3 months, me1 including since admission No falls in past 3 months (0 pts) Confusion or Disorientation No (0 pts) Intoxicated or Sedated No (0 pts) Impaired Gait No (0 pts) Mobility Assist Device Used No (0 pt) Altered Elimination No (0 pt) Score/Fall Risk Level 0 - 2 = Low Risk Maintained a safe environment, Provided non-skid footwear, Hourly rounding (assess needs \T\ fall precautionary measures) done. Abuse screen: Denies threats or abuse. Nutritional screening: No deficits noted. Tuberculosis screening: No symptoms or risk factors identified. Assessment: 10:58 Reassessment: No changes from previously documented assessment. Patient and/or family ll1 updated on plan of care and expected duration. Pain level reassessed. 12:15 General: Appears comfortable, well groomed, well developed, well nourished, Behavior is me1 calm, cooperative, appropriate for age, Reports Sent by PCP for hemoglobin 5.0, c/o SOB x 1 week. Pain: Denies pain. Neuro: Level of Consciousness is awake, alert, obeys commands, Oriented to person, place, time, situation, Appropriate for age. Cardiovascular: Patient's skin is warm and dry. Respiratory: Reports shortness of breath on exertion since about a week ago Airway is patent Respiratory effort is even, unlabored, Respiratory pattern is regular, symmetrical. GI: No signs and/or symptoms were reported involving the gastrointestinal system. : No signs and/or symptoms were reported regarding the genitourinary system. EENT: No signs and/or symptoms were reported regarding the EENT system. Derm: Skin is intact, is healthy with good turgor, Skin is pink, warm \T\ dry. Musculoskeletal: No signs and/or symptoms reported regarding the musculoskeletal system. 16:23 General: Report called to YONIS Anders at [facility] in [facility] . me1 Vital Signs: 10:25 BP 131 / 62; Pulse 63; Resp 16; Temp 97.8(TE); Pulse Ox 97% on R/A; Weight 110.22 kg; hb Height 5 ft. 7 in. ; Pain 0/10; 12:00 BP 122 / 58; Pulse 62; Resp 16; Pulse Ox 100% ; me1 13:00 BP 113 / 38; Pulse 61; Resp 15; Pulse Ox 100% ; me1 14:00 BP 109 / 74; Pulse 90; Resp 16; Pulse Ox 100% ; me1 15:00 BP 101 / 84; Pulse 73; Resp 15; Pulse Ox 100% ; me1 16:00 BP 121 / 67; Pulse 70; Resp 16; Pulse Ox 100% ; me1 17:00 BP 110 / 53; Pulse 61; Resp 17; Temp 98.4; Pulse Ox 100% ; me1 10:25 Body Mass Index 38.06 (110.22 kg, 170.18 cm) hb 10:25 Pain Scale: Adult hb ED Course: 10:07 Patient arrived in ED. mg5 10:10 Mendoza Dave MD is Attending Physician. rn 10:26 Triage completed. hb 10:27 Arm band placed on. hb 10:44 CT Abd/Pelvis - Without Contrast In Process Unspecified. EDMS 10:54 Gab Lozoya RN is Primary Nurse. jl7 10:58 Patient placed in an exam room, on a stretcher. ll1 11:01 Abdomen Limited US In Process Unspecified. EDMS 12:15 Patient has correct armband on for positive identification. Bed in low position. Call me1 light in reach. Side rails up X2. Provided Education on: POC, Verbalized understanding. . Client placed on continuous cardiac and pulse oximetry monitoring. NIBP monitoring applied. structural steel worker helper on. Pulse ox on. NIBP on. 12:15 No provider procedures requiring assistance completed. Inserted saline lock: 20 gauge me1 in right antecubital area, using aseptic technique. Blood collected. Flushed with 10 mL NS. 12:38 Primary Nurse role handed off by Gab Lozoya RN jl7 12:41 Oriana Meza, YONIS is Primary Nurse. me1 13:16 Antibody Identification Sent. me1 13:40 Cholangiogram In Process Unspecified. EDMS 14:[address] [facility]. bd 17:20 Patient transferred, IV remains in place. me1 Administered Medications: 13:19 Drug: Diazepam PO 2 mg PO once Route: PO; me1 13:40 Follow up: Response: No adverse reaction; Anxiety decreased me1 17:08 Drug: [place] PO 10 mg-325 mg 1 tabs PO once Route: PO; me1 17:21 Follow up: Response: No adverse reaction me1 Medication: 12:15 VIS not applicable for this client. me1 Outcome: 14:40 ER care complete, transfer ordered by . rn 17:20 Transferred by ground EMS to [facility], Transfer form completed. me1 Note: Report called to [facility]. 17:20 Condition: stable 17:20 Instructed on the need for transfer, 17:21 Patient left the ED. me1 Signatures: Dispatcher [employer] EDDasha Dahl Roman, MD MD rn Baxter, Heather RN RN hb Gab Lozoya RN RN jl7 Magnolia Mandujano RN RN ll1 Oriana Meza RN RN me1 Tania Puentes mg5 Corrections: (The following items were deleted from the chart) 10:27 10:26 Home Meds: Tramadol Oral; hb hb 10:28 10:25 Acuity: SAGE 3 hb hb 16:07 10:25 Chief complaint: Sent by PCP for hemoglobin 5.0, c/o SOB x 1 week. hb me1 16:24 16:24 BP 121 / 67; Pulse 70bpm; Resp 16bpm; Pulse Ox 100%; me1 me1
--- NOTE | 2023-12-03 14:41 | EDPHYS ---
Physician Documentation [facility] Name: Antonia Sunshine Age: 67 yrs Sex: Female : 1955 Arrival Date: 12/03/2023 Time: 10:01 Bed 24 Private MD: ED Physician Mendoza Dave HPI: 12/02 11:49 This 67 yrs old Female presents to ER via Ambulatory with complaints of Abnormal furniture removalist Results. 11:49 Patient reports sent for abnormal lab results. Reports shortness of breath and told rn hemoglobin was 5.0. Denies blood in stool or dark stool. No hematemesis. No history of anemia in the past. Recently treated for shingles and does not recall what medication she was given.. Severity of symptoms: At their worst the symptoms were mild in the emergency department the symptoms are unchanged. The patient has not experienced similar symptoms in the past. The patient has been recently seen by a physician:. Historical: - Allergies: 10:26 Red Dye; hb - Home Meds: 10:26 aspirin 325 mg Oral TbEC once daily [Active]; Edgewood Oral [Active]; Tramadol Oral hb [Active]; 10:28 Robaxin Oral [Active]; aspirin 81 mg Oral tablet,chewable [Active]; gabapentin 100 mg hb oral capsule 3 times per day [Active]; - PMHx: 10:28 Arthritis; hb - PSHx: 10:28 Knee Replacement - Bilateral; hb - Immunization history:: Adult Immunizations up to date. - Infectious Disease History:: Denies. - Social history:: Smoking status: Patient denies any tobacco usage or history of. - Family history:: not pertinent. - Hospitalizations: : No recent hospitalization is reported. ROS: 11:49 Constitutional: Negative for fever, chills, and weight loss, Cardiovascular: Negative rn for chest pain, palpitations, and edema, Respiratory: Positive for shortness of breath Abdomen/GI: Negative for abdominal pain, nausea, vomiting, diarrhea, and constipation, Back: Negative for injury and pain, MS/Extremity: Negative for injury and deformity, Skin: Negative for injury, rash, and discoloration, Neuro: Positive for generalized weakness and malaise Exam: 11:49 Constitutional: This is a well developed, well nourished patient who is awake, alert, rn and in no acute distress. Head/Face: Normocephalic, atraumatic. Eyes: Scleral icterus Cardiovascular: Regular rate and rhythm. No pulse deficits. Respiratory: No increased work of breathing, no retractions or nasal flaring. Abdomen/GI: Soft, non-tender Skin: General Jaundice noted Vital Signs: 10:25 BP 131 / 62; Pulse 63; Resp 16; Temp 97.8(TE); Pulse Ox 97% on R/A; Weight 110.22 kg; hb Height 5 ft. 7 in. ; Pain 0/10; 12:00 BP 122 / 58; Pulse 62; Resp 16; Pulse Ox 100% ; me1 13:00 BP 113 / 38; Pulse 61; Resp 15; Pulse Ox 100% ; me1 14:00 BP 109 / 74; Pulse 90; Resp 16; Pulse Ox 100% ; me1 15:00 BP 101 / 84; Pulse 73; Resp 15; Pulse Ox 100% ; me1 16:00 BP 121 / 67; Pulse 70; Resp 16; Pulse Ox 100% ; me1 17:00 BP 110 / 53; Pulse 61; Resp 17; Temp 98.4; Pulse Ox 100% ; me1 10:25 Body Mass Index 38.06 (110.22 kg, 170.18 cm) hb 10:25 Pain Scale: Adult hb MDM: 10:10 Medical Screening Exam initiated rn 14:38 Differential Diagnosis Adverse medication effect, liver failure, choledocholithiasis, rn malignancy, hematologic problem. Data reviewed: vital signs, nurses notes, lab test result(s), radiologic studies, CT scan, MRI, ultrasound, and as a result, I will admit patient. Consideration of Admission/Observation Patient was admitted/placed on observation. Escalation of care including admission/observation considered. Management of patient was discussed with the following: Pilot Plant Research Technician: Discussed with biliary specialist at [facility], states probably does not need immediate intervention for biliary findings but agrees with transfer, will consult, believes also that there may be hematological problem going on.. Counseling: I had a detailed discussion with the patient and/or guardian regarding the historical points, exam findings, and any diagnostic results supporting the discharge/admit diagnosis, lab results, radiology results, the need for further work-up and treatment in the hospital, the need to transfer to another facility, [facility] does not immediately have the required specialist. 12/02 10:32 Order name: CBC with Diff; Complete Time: 12:57 rn 12/02 10:32 Order name: CMP; Complete Time: 12:57 rn 12/02 10:32 Order name: Lipase; Complete Time: 12:57 rn 12/02 10:32 Order name: Urinalysis w/ reflexes; Complete Time: 12:35 rn 12/02 10:32 Order name: Type And Screen rn 12/02 12:37 Order name: CBC Smear Scan; Complete Time: 12:57 EDMS 12/02 13:08 Order name: Antibody Identification EDMS 12/02 13:36 Order name: ABO/RH no charge; Complete Time: 14:10 EDMS 12/02 10:32 Order name: Abdomen Limited US; Complete Time: 11:37 rn 12/02 10:32 Order name: CT Abd/Pelvis - Without Contrast; Complete Time: 11:37 rn 12/02 12:10 Order name: Cholangiogram; Complete Time: 14:10 EDMS 12/02 10:32 Order name: IV Saline Lock; Complete Time: 12:00 rn 12/02 10:32 Order name: Labs collected and sent; Complete Time: 12:00 rn Administered Medications: 13:19 Drug: Diazepam PO 2 mg PO once Route: PO; me1 13:40 Follow up: Response: No adverse reaction; Anxiety decreased me1 17:08 Drug: Edgewood PO 10 mg-325 mg 1 tabs PO once Route: PO; me1 17:21 Follow up: Response: No adverse reaction me1 Disposition Summary: 12/03/23 14:40 Transfer Ordered Notes: Transfer Location: [facility] rn Reason: Higher level of care rn Condition: Stable rn Problem: new rn Symptoms: are unchanged rn Accepting Physician: (12/03/23 17:21) me1 Diagnosis - Unspecified jaundice rn - Anemia, unspecified rn - Other cholelithiasis without obstruction rn Forms: - Medication Reconciliation Form rn - SBAR form rn Signatures: Dispatcher [employer] EDMendoza Matthews MD MD rn Baxter, Heather, RN RN hb Eddleman, Michelle RN RN me1 Corrections: (The following items were deleted from the chart) 10:27 10:26 Home Meds: Tramadol Oral; hb hb 10:32 10:32 CBC+H.LAB.BRZ ordered. EDMS EDMS 10:32 10:32 COMPREHENSIVE METABOLIC PANEL+C.LAB.BRZ ordered. EDMS EDMS 10:32 10:32 LIPASE+C.LAB.BRZ ordered. EDMS EDMS 10:32 10:32 Urinalysis+U.LAB.BRZ ordered. EDMS EDMS 10:32 10:32 TYPE AND SCREEN+BB.LAB.BRZ ordered. EDMS EDMS 10:33 10:33 Abdomen Limited+US.RAD.BRZ ordered. EDMS EDMS 10:33 10:33 Abdomen Pelvis Wo Con+CT.RAD.BRZ ordered. EDMS EDMS 17:21 14:40 rn me1
[2023-12-03] MEDS ORDERED: HYDROCODONE/APAP 10/325 TAB ONE (17:07)
[2023-12-03 20:27] VITALS: O2SAT 100
[2023-12-03 20:33] VITALS: BP 110/53; TEMP 98.4
== END 2023-12-03 17:21 | disposition short-term general hospital (02) ==
LOC: ER 10:01
DX: D64.9 Anemia, unspecified (principal); K80.80 Other cholelithiasis without obstruction; R17 Unspecified jaundice; Z79.82 Long term (current) use of aspirin
CPT/HCPCS: 36415; 74176; 74181; 76705; 80053; 81001; 83690; 85025; 86850; 86870; 86900; 86901

== ENCOUNTER 2024-01-22 07:46 | Day surgery (SDC) | payer OTHER ==
--- NOTE | 2024-01-22 08:08 | RAD REPORT ---
EXAM: Chest Pa And Lat (2 Views) HISTORY: PREOP, history of pulmonary fibrosis COMPARISON: 06/20/2018 FINDINGS: LUNGS/PLEURA: The lungs are clear. No pleural effusions or pneumothorax. No pulmonary edema. MEDIASTINUM: The mediastinal silhouette is within normal limits. CARDIAC: The cardiac silhouette is within normal limits. UPPER ABDOMEN: No significant abnormality. BONES: No acute fracture. LINES/TUBES/OTHER: N/A IMPRESSION: No evidence of acute cardiopulmonary disease.
[2024-01-22 08:25] LABS: Absolute Eosinophils 0.2 K/uL (0-0.5); Absolute Lymphocytes (CBC) 1.3 K/uL (0.7-4.9); Absolute Monocytes 0.5 K/uL (0.1-1.3); Absolute Neutrophil 2.8 K/uL (1.8-8.0); Basophils % 0.6 % (0-1.3); Eosinophils % 3.4 % (0-4.4); Hematocrit 34.1 % (36.0-45.0); Hemoglobin 11.3 g/dL (12.0-15.0); Lymphocytes % 27.1 % (15.3-44.8); MCH 34.8 pg (27.0-35.0); MCHC 33.2 g/dL (32.0-36.0); MCV 104.8 fL (80-100); MPV 7.6 fL (7.6-11.3); Monocytes % 11.1 % (3.3-12.3); Neutrophils % 57.8 % (41.7-73.7); Nucleated Red Blood Cells % 0.1 % (0-0); Platelets 264 thou/uL (152-406); RBC Red Blood Cell Count 3.25 M/uL (3.86-4.86); Red Cell Distribution Width 14.1 % (12.1-15.2)
[2024-01-22 08:39] LABS: Anion Gap 5.8 mEq/L (5.0-15.0); Bilirubin Direct 0.2 mg/dL (0-0.2); Bilirubin Indirect, Calculated 0.6 mg/dL (0.2-0.8); Bilirubin Total 0.8 mg/dL (0.2-1.0); Potassium 4.8 mEq/L (3.5-5.1)
[2024-01-22] MEDS: Ringers Lactate 1,000 ML IV ONE (08:40)
[2024-01-22] MEDS ORDERED: GLYCOPYRROLATE 0.2 MG/ML SYR ONE (09:38)
[2024-01-22] MEDS ORDERED: ONDANSETRON 4 MG/2 ML VIAL ONE (09:38)
[2024-01-22] MEDS ORDERED: LIDOCAINE 2% MPF 5 ML VIAL ONE (09:38)
[2024-01-22] MEDS ORDERED: ROCURONIUM 50 MG/5 ML VIAL IV ONE (09:38)
[2024-01-22] MEDS ORDERED: propofoL 200 MG/20 ML VIAL IV ONE (09:38)
[2024-01-22] MEDS ORDERED: NEOSTIGMINE 1 MG/ML -10 ML VIAL ONE (09:38)
[2024-01-22] MEDS ORDERED: MIDAZOLAM HCL 2 MG/2 ML INJ ONE (09:39)
[2024-01-22] MEDS ORDERED: FENTANYL CITR 100 MCG/2 ML ONE ×2 (09:39→10:46)
[2024-01-22] MEDS ORDERED: dexAMETHasone 10 MG/ML VIAL ONE (10:22)
[2024-01-22] MEDS: CEFOXITIN SODIUM 1 GM/VIAL ONE (10:28)
[2024-01-22] MEDS: HYDROMORPHONE HCL 1 MG/ML INJ ONE (11:30)
--- NOTE | 2024-01-22 12:13 | P.BOP ---
Preoperative diagnosis: symptomatic cholelithiasis, hx choledocholithiasis, hx of ERCP with stent Postoperative diagnosis: same Primary procedure: Laparoscopic cholecystectomy Estimated blood loss: <10cc Specimen: gb Findings: as above Anesthesia: General Complications: None Transferred to: Recovery Room Condition: Good
[2024-01-22] MEDS: HYDROCODONE/APAP 7.5/325 MG TAB ONE (12:26)
[2024-01-22 13:38] VITALS: BP 150/63; TEMP 97.7; O2SAT 95
== END 2024-01-22 13:19 | disposition home or self-care (01) ==
LOC: OR 07:46
PROVIDERS: ATTEND Surgery
PROC: 0FT44ZZ Resection of Gallbladder, Percutaneous Endoscopic Approach (ICD-10-PCS; principal; 2024-01-22 10:30)
DX: K80.10 Calculus of gallbladder with chronic cholecystitis without obstruction (principal)
CPT/HCPCS: 85025; 80048; 36415; 80076; 88302; 88304; 83690; 71046; 47562; J2704; J2710; J2003; J2250; J3010 ×2; J1100; J1171; J0694; J2405; J7120; 88311